=== PATIENT | male | born 1995 | race Caucasian/White ===

== ENCOUNTER 2021-10-24 09:03 | Outpatient (REF) | payer OTHER, SELFPAY ==
[2021-10-24 10:32] LABS: Binax Internal Control QC Valid; Binax Now Covid-19 Ag Negative (Negative)
== END 2021-10-24 09:04 | disposition home or self-care (01) ==
LOC: HO.LAB 09:03
PROVIDERS: Visit Provider Internal Medicine
DX: Z20.822 Contact with and (suspected) exposure to COVID-19 (principal)
CPT/HCPCS: C9803

== ENCOUNTER 2023-11-18 12:15 | Outpatient (AMB) | payer OTHER, SELFPAY ==
[2023-11-18 12:17] VITALS: BP 124/90; PULSE 84; TEMP 36.8; O2SAT 98; BMI 17.8
--- NOTE | 2023-11-18 12:17 | AM.OFFWIN_ITS ---
Intake Vital Signs 11/18/23 12:17 Height 6 ft 2 in Weight 138 lb 8 oz BMI 17.8 BP 124/90 H Blood Pressure Location Rt brachial Position Sitting Pulse 84 Pulse Source Pulse Oximeter Temp 98.2 F Temp Source Temporal Artery Scan Pulse Oximetry (%) 98 Oxygen Delivery Method Room Air Intake Visit Reasons: [employer]/sinus pressure (lobby masked) Intake Note: Pt is here c/o sinus pressure behind his right eye for one week. Pt states he also has extreme stomach pain since last month. Patient Tobacco Use Status: Never used Tobacco Allergies No Known Allergies Allergy (Unverified 11/18/23 12:20) Do you need a note to return to daycare/school/sports/work: Yes HPI HPI Comments History of Present Illness Details This is a 28-year-old male with no stated past medical history who had a dental extraction from his right lower dentition approximately 3 weeks ago and was prescribed amoxicillin. Patient states 2 days after he initiated the antibiotic therapy he had postprandial pain which has persisted. He states the pain will resolve until his next meal -- he describes the pain as burning and aching in nature. Patient reports increased burping but denies having any fevers, chills, cough, shortness of breath, sore throat, nausea, vomiting or diarrhea. Patient denies any previous abdominal surgeries. He is also complaining of right-sided sinus pain that he has had for the past 3 days. [facility] Social History Patient Tobacco Use Status: Never used Tobacco Review of Systems Const All systems reviewed & are unremarkable except as noted in HPI and below Denies chills and Denies fever(s) Eyes Reports no additional complaints ENT Reports no additional complaints and Reports sinus pressure (right side) Card Reports no additional complaints GI Reports no additional complaints and Reports abdominal pain (Postprandial) Reports no additional complaints Musc Reports no additional complaints Physical Exam Vital Signs: Last Vital Signs Temp 98.2 F 11/18/23 12:17 Pulse 84 11/18/23 12:17 BP 124/90 H 11/18/23 12:17 Pulse Ox 98 11/18/23 12:17 Oxygen Delivery Method Room Air 11/18/23 12:17 BMI result Body Mass Index 17.8 afebrile Const General: cooperative, comfortable and no acute distress Nutritional Appearance: thin Orientation/consciousness: patient oriented x3 Limitations: no limitations HEENT Head: Yes normal to inspection and Yes normocephalic Ears: hearing grossly normal bilaterally, external ears normal, TM's normal bilaterally and EAC's normal General nose exam: Normal external nose present and Normal nares present Face and sinus: Yes normal facial exam, Yes sinuses nontender, Yes face symmetric and No sinus tenderness Mouth: Normal oral and palatal mucosa present Teeth and gingiva: abnormal dentition (several necrotic teeth noted) and gingiva normal (no pain to examination of extraction site; no edema or erythema) Throat: Yes posterior oropharynx normal Eyes Periorbital: periorbital findings normal Eyelids: Yes eyelids normal Conjunctivae: conjunctivae normal Sclerae: sclerae normal Corneas: corneas normal Pupils: Equal, round and reactive pupils present EOM: EOMs intact bilaterally Neck Lymphatic: no lymphadenopathy noted Resp Effort & Inspection: normal respiratory effort Auscultation: clear to auscultation bilaterally Cardio Rate: regular rate Rhythm: regular rhythm GI Inspection: No distended Palpation (GI): Soft to palpation, Tenderness to palpation present (GI) in the epigastrum; not in the LUQ, not in the RUQ, not periumbilically, not suprapubicly and with no rebound tenderness and no guarding Auscultation: normal bowel sounds Neuro General: patient oriented x3 Cranial nerves: Yes Equal, round and reactive pupils present Psych Appearance: grossly normal Mental Status: mental status grossly normal Insight: Good insight present (Psych) Judgement: Good judgement present (Psych) Assessment & Plan Assessment & Plan (1) Gastroesophageal reflux disease: Comment: No examination findings consistent with cholelithiasis or cholecystitis. Patient will be discharged with omeprazole. Code(s): K21.9 - Gastro-esophageal reflux disease without esophagitis Qualifiers: Esophagitis presence: esophagitis presence not specified Qualified Code(s): K21.9 - Gastro-esophageal reflux disease without esophagitis Plan: Omeprazole 40 mg x 14 days; patient instructed to take 20 mg daily thereafter as needed. Medications: New omeprazole 40 mg PO DAILY 14 caps 0RF Coding Level of Care Code New Pt Level 3 (87323) Diagnoses Gastroesophageal reflux disease, unspecified whether esophagitis present K21.9 Esophagitis presence: esophagitis presence not specified Time Spent (min) 20
== END 2023-11-18 12:58 | disposition home or self-care (01) ==
PROVIDERS: PCP Hospitalist; Visit Provider Physician Assistant
DX: K21.9 Gastro-esophageal reflux disease without esophagitis (principal)
CPT/HCPCS: 99203